=== PATIENT | male | born 1960 | race Caucasian/White ===

== ENCOUNTER 2023-07-04 04:32 | Inpatient (IN) | payer OTHER ==
[2023-07-04 05:07] LABS: #Monocytes 0.7 thou/uL (0.11-0.59); #Neutrophils 13.6 thou/uL (1.40-6.50); %Basophils 0.2 % (0.0-1.0); %Lymphocytes 9.4 % (21.0-51.0); %Monocytes 4.6 % (0.0-10.0); %Neutrophils 85.3 % (42.0-75.0); Hematocrit 40.9 % (42.0-52.0); Hemoglobin 14.1 g/dL (14.0-18.0); Mean Corpuscular HGB CONC 34.5 g/dL (32.0-36.0); Mean Corpuscular Hemoglobin 30.1 pg (27.0-31.0); Mean Corpuscular Volume 87.2 fl (78.0-98.0); Platelet Count 194 10x3/uL (130-400); RBC Distribution Width 13.3 % (11.5-14.5); Red Blood Cell (RBC) Count 4.69 mill/uL (4.70-6.10); White Blood Cell (WBC) Count 15.9 10x3/uL (4.8-10.8)
[2023-07-04] MEDS ORDERED: Cefepime 2 GM VIAL ONE (05:10)
[2023-07-04] MEDS ORDERED: Acetaminophen 500 MG TAB ONE (05:10)
[2023-07-04 05:34] LABS: ALT (SGPT) 18 U/L (8-55); AST (SGOT) 50 U/L (5-34); Albumin 4.6 g/dL (3.4-4.8); Alkaline Phosphatase 60 U/L (40-110); Anion Gap 15 mmol/L (10-20); BUN (Urea Nitrogen) 23 mg/dL (8.4-25.7); Bilirubin, Total 3.2 mg/dL (0.2-1.2); Calc. Creatinine Clearance 0 mL/min (70-130); Calcium 8.8 mg/dL (7.8-10.44); Carbon Dioxide 26 mmol/L (23-31); Chloride 96 mmol/L (98-107); Estimated GFR 65; Globulin 2.3 g/dL (2.4-3.5); Glucose 124 mg/dL (80-115); Potassium 3.3 mmol/L (3.5-5.1); Protein, Total 6.9 g/dL (5.8-8.1); Sodium 134 mmol/L (136-145)
[2023-07-04 05:38] LABS: Troponin I 0.021 ng/mL (< 0.028)
[2023-07-04] MEDS ORDERED: Vancomycin (BATCH) 2 GM in Premix 1 BAG IVPB SCH (07:00)
[2023-07-04] MEDS ORDERED: HYDROcodone/Acetaminophen 5/325 mg Tablet PO PRN (08:14)
[2023-07-04] MEDS ORDERED: Ondansetron PF 4 MG/2 ML Vial IVP PRN (08:14)
[2023-07-04] MEDS ORDERED: Bisacodyl 5 MG TAB PO PRN (08:14)
[2023-07-04] MEDS ORDERED: Senokot S 8.6-50 MG TAB PO PRN (08:14)
[2023-07-04] MEDS ORDERED: Calcium Carbonate 500 MG ChewTAB PO PRN (08:14)
[2023-07-04] MEDS ORDERED: Electrolyte Replacement Protocol 1 EACH FS SCH (08:30)
[2023-07-04] MEDS ORDERED: Potassium Chloride 20 MEQ TAB PO SCH (08:30)
[2023-07-04 08:52] LABS: Lactic Acid 1.1 mmol/L (0.5-2.2)
[2023-07-04] MEDS ORDERED: Cefepime 1 GM in Sodium Chloride 0.9% 100 ML IVPB SCH (09:00)
[2023-07-04] MEDS ORDERED: Vancomycin 1 GM in Premix 1 BAG IVPB SCH (09:00)
[2023-07-04 09:40] VITALS: BMI 35.2
[2023-07-04] MEDS: Lisinopril 20 MG TAB PO SCH (09:48)
[2023-07-04] MEDS: Amlodipine 5 MG TAB PO SCH (09:49)
[2023-07-04] MEDS ORDERED: FLU VACC QS2023(65UP)/MF59C/PF 60 MCG/0.5 ML SYRINGE IM ONE (14:00)
[2023-07-04] MEDS: Vancomycin (BATCH) 1.25 GM in Premix 1 BAG IVPB SCH (18:23)
[2023-07-04] MEDS: Acetaminophen 325 MG TAB PO PRN (20:39)
[2023-07-04] MEDS ORDERED: Vancomycin (BATCH) 1.75 GM in Premix 1 BAG IVPB SCH (21:00)
[2023-07-04] MEDS: Cefepime 2 GM in Sodium Chloride 0.9% 100 ML IVPB SCH (21:37)
[2023-07-05 05:17] LABS: #Monocytes 0.5 thou/uL (0.11-0.59); #Neutrophils 9.1 thou/uL (1.40-6.50); %Basophils 0.2 % (0.0-1.0); %Eosinophils 0.3 % (0.0-10.0); %Lymphocytes 11.4 % (21.0-51.0); %Monocytes 4.7 % (0.0-10.0); %Neutrophils 82.7 % (42.0-75.0); Hematocrit 33.6 % (42.0-52.0); Hemoglobin 11.5 g/dL (14.0-18.0); Mean Corpuscular HGB CONC 34.2 g/dL (32.0-36.0); Mean Corpuscular Hemoglobin 30.3 pg (27.0-31.0); Mean Corpuscular Volume 88.7 fl (78.0-98.0); Mean Platelet Volume 10.3 fL (7.4-10.4); Platelet Count 162 10x3/uL (130-400); RBC Distribution Width 13.5 % (11.5-14.5); Red Blood Cell (RBC) Count 3.79 mill/uL (4.70-6.10)
[2023-07-05 05:27] LABS: Hemoglobin A1c 5.2 % (4.0-6.0)
[2023-07-05] MEDS: Vancomycin (BATCH) 1.25 GM in Premix 1 BAG IVPB SCH (05:49)
[2023-07-05 05:52] LABS: Anion Gap 12 mmol/L (10-20); BUN (Urea Nitrogen) 18 mg/dL (8.4-25.7); Calc. Creatinine Clearance 140 mL/min (70-130); Calcium 8.7 mg/dL (7.8-10.44); Carbon Dioxide 25 mmol/L (23-31); Cardiac Risk 5.2 (Less than 4.5); Chloride 100 mmol/L (98-107); Cholesterol 140 mg/dl (< 200 Desired); Estimated GFR 95; Glucose 121 mg/dL (80-115); HDL Cholesterol 27 mg/dL (>60 Neg Risk); LDL Cholesterol, Calculated 86 mg/dL; Magnesium 2.2 mg/dL (1.6-2.6); Potassium 3.2 mmol/L (3.5-5.1); Sodium 134 mmol/L (136-145); Triglycerides 134 mg/dL (Less than 150)
[2023-07-05] MEDS ORDERED: Potassium Chloride 20 MEQ TAB PO SCH (08:00)
[2023-07-05] MEDS: Cefepime 2 GM in Sodium Chloride 0.9% 100 ML IVPB SCH ×2 (08:24→19:57)
[2023-07-05] MEDS: Amlodipine 5 MG TAB PO SCH (08:24)
[2023-07-05] MEDS: Lisinopril 20 MG TAB PO SCH (08:24)
[2023-07-05 17:16] LABS: Vancomycin, Trough 9.2 ug/mL
[2023-07-05] MEDS: Acetaminophen 325 MG TAB PO PRN (17:35)
[2023-07-05] MEDS: Vancomycin (BATCH) 1.5 GM in Premix 1 BAG IVPB SCH (17:50)
[2023-07-06] MEDS: Vancomycin (BATCH) 1.5 GM in Premix 1 BAG IVPB SCH ×2 (05:26→17:33)
[2023-07-06] MEDS: Cefepime 2 GM in Sodium Chloride 0.9% 100 ML IVPB SCH ×2 (09:03→20:54)
[2023-07-06] MEDS: Amlodipine 5 MG TAB PO SCH (09:03)
[2023-07-06] MEDS: Lisinopril 20 MG TAB PO SCH (09:03)
[2023-07-07 05:50] LABS: Vancomycin, Trough 10.3 ug/mL
[2023-07-07] MEDS: Vancomycin (BATCH) 1.5 GM in Premix 1 BAG IVPB SCH ×2 (06:26→17:39)
[2023-07-07 08:24] LABS: Anion Gap 13 mmol/L (10-20); BUN (Urea Nitrogen) 16 mg/dL (8.4-25.7); Calc. Creatinine Clearance 150 mL/min (70-130); Calcium 8.3 mg/dL (7.8-10.44); Carbon Dioxide 21 mmol/L (23-31); Chloride 106 mmol/L (98-107); Estimated GFR 97; Glucose 105 mg/dL (80-115); Potassium 3.3 mmol/L (3.5-5.1); Sodium 137 mmol/L (136-145)
[2023-07-07 09:12] LABS: #Eosinphils 0.3 thou/uL (0.0-0.7); #Monocytes 0.8 thou/uL (0.11-0.59); #Neutrophils 7.5 thou/uL (1.40-6.50); %Basophils 0.3 % (0.0-1.0); %Eosinophils 3.1 % (0.0-10.0); %Lymphocytes 14.9 % (21.0-51.0); %Neutrophils 72.9 % (42.0-75.0); Hematocrit 32.4 % (42.0-52.0); Hemoglobin 11.1 g/dL (14.0-18.0); Mean Corpuscular HGB CONC 34.3 g/dL (32.0-36.0); Mean Corpuscular Hemoglobin 30.1 pg (27.0-31.0); Mean Corpuscular Volume 87.8 fl (78.0-98.0); Mean Platelet Volume 10.4 fL (7.4-10.4); Platelet Count 196 10x3/uL (130-400); RBC Distribution Width 13.4 % (11.5-14.5); Red Blood Cell (RBC) Count 3.69 mill/uL (4.70-6.10); White Blood Cell (WBC) Count 10.2 10x3/uL (4.8-10.8)
[2023-07-07] MEDS ORDERED: Potassium Chloride 20 MEQ TAB PO SCH (09:15)
[2023-07-07] MEDS: Cefepime 2 GM in Sodium Chloride 0.9% 100 ML IVPB SCH ×2 (10:04→20:36)
[2023-07-07] MEDS: Amlodipine 5 MG TAB PO SCH (10:04)
[2023-07-07] MEDS: Lisinopril 20 MG TAB PO SCH (10:05)
[2023-07-07] MEDS: Clindamycin/D5W 900 MG in Premix 1 BAG IVPB SCH ×2 (14:23→21:34)
[2023-07-08] MEDS: Clindamycin/D5W 900 MG in Premix 1 BAG IVPB SCH (05:49)
[2023-07-08] MEDS: Vancomycin (BATCH) 1.5 GM in Premix 1 BAG IVPB SCH (05:50)
[2023-07-08] MEDS: Cefepime 2 GM in Sodium Chloride 0.9% 100 ML IVPB SCH (08:30)
[2023-07-08] MEDS: Lisinopril 20 MG TAB PO SCH (09:25)
[2023-07-08] MEDS: Amlodipine 5 MG TAB PO SCH (09:25)
[2023-07-08] MEDS: CEFAZOLIN 2 GM in Sodium Chloride 0.9% 100 ML IVPB SCH ×2 (14:33→21:00)
[2023-07-09] MEDS: CEFAZOLIN 2 GM in Sodium Chloride 0.9% 100 ML IVPB SCH ×3 (06:26→21:55)
[2023-07-09] MEDS: Lisinopril 20 MG TAB PO SCH (08:10)
[2023-07-09] MEDS: Amlodipine 5 MG TAB PO SCH (08:10)
[2023-07-09 09:04] LABS: #Eosinphils 0.3 thou/uL (0.0-0.7); #Monocytes 0.8 thou/uL (0.11-0.59); #Neutrophils 7.4 thou/uL (1.40-6.50); %Basophils 0.3 % (0.0-1.0); %Eosinophils 2.6 % (0.0-10.0); %Monocytes 7.8 % (0.0-10.0); %Neutrophils 71.5 % (42.0-75.0); Hematocrit 31.1 % (42.0-52.0); Hemoglobin 10.5 g/dL (14.0-18.0); Mean Corpuscular HGB CONC 33.8 g/dL (32.0-36.0); Mean Corpuscular Hemoglobin 30.3 pg (27.0-31.0); Mean Corpuscular Volume 89.6 fl (78.0-98.0); Mean Platelet Volume 10.5 fL (7.4-10.4); Platelet Count 279 10x3/uL (130-400); RBC Distribution Width 13.3 % (11.5-14.5); Red Blood Cell (RBC) Count 3.47 mill/uL (4.70-6.10); White Blood Cell (WBC) Count 10.3 10x3/uL (4.8-10.8)
[2023-07-09 09:24] LABS: Anion Gap 11 mmol/L (10-20); BUN (Urea Nitrogen) 15 mg/dL (8.4-25.7); Calc. Creatinine Clearance 152 mL/min (70-130); Calcium 8.4 mg/dL (7.8-10.44); Carbon Dioxide 27 mmol/L (23-31); Chloride 106 mmol/L (98-107); Estimated GFR 98; Glucose 117 mg/dL (80-115); Potassium 3.4 mmol/L (3.5-5.1); Sodium 141 mmol/L (136-145)
[2023-07-09] MEDS ORDERED: Potassium Chloride 20 MEQ TAB PO SCH ×2 (11:00→13:30)
[2023-07-10] MEDS: CEFAZOLIN 2 GM in Sodium Chloride 0.9% 100 ML IVPB SCH ×3 (05:34→21:01)
[2023-07-10] MEDS ORDERED: Potassium Chloride 20 MEQ TAB PO SCH (09:00)
[2023-07-10] MEDS: Amlodipine 5 MG TAB PO SCH (09:45)
[2023-07-10] MEDS: Lisinopril 20 MG TAB PO SCH (09:45)
[2023-07-10] MEDS ORDERED: Triamcinolone 0.025 % Cream 15GM TUBE TOP PRN (13:38)
[2023-07-10] MEDS: Triamcinolone 0.1% Cream 15 GM TUBE TOP SCH (21:05)
[2023-07-11] MEDS: CEFAZOLIN 2 GM in Sodium Chloride 0.9% 100 ML IVPB SCH ×3 (05:49→22:00)
[2023-07-11] MEDS: Lisinopril 20 MG TAB PO SCH (08:13)
[2023-07-11] MEDS: Amlodipine 5 MG TAB PO SCH (08:13)
[2023-07-11] MEDS: Metamucil PACK PO SCH (08:13)
[2023-07-11] MEDS: Triamcinolone 0.1% Cream 15 GM TUBE TOP SCH ×2 (08:20→20:06)
[2023-07-12] MEDS: CEFAZOLIN 2 GM in Sodium Chloride 0.9% 100 ML IVPB SCH ×3 (05:56→21:07)
[2023-07-12] MEDS: Amlodipine 5 MG TAB PO SCH (08:30)
[2023-07-12] MEDS: Lisinopril 20 MG TAB PO SCH (08:31)
[2023-07-12] MEDS: Metamucil PACK PO SCH (08:33)
[2023-07-12] MEDS: Triamcinolone 0.1% Cream 15 GM TUBE TOP SCH ×2 (08:39→21:07)
[2023-07-13] MEDS: CEFAZOLIN 2 GM in Sodium Chloride 0.9% 100 ML IVPB SCH ×3 (06:08→20:51)
[2023-07-13 06:31] LABS: Hemoglobin 10.6 g/dL (14.0-18.0); Mean Corpuscular HGB CONC 33.1 g/dL (32.0-36.0); Mean Corpuscular Hemoglobin 29.4 pg (27.0-31.0); Mean Corpuscular Volume 88.9 fl (78.0-98.0); Mean Platelet Volume 10.4 fL (7.4-10.4); Platelet Count 393 10x3/uL (130-400); White Blood Cell (WBC) Count 10.6 10x3/uL (4.8-10.8)
[2023-07-13 07:34] LABS: Anion Gap 13 mmol/L (10-20); BUN (Urea Nitrogen) 12 mg/dL (8.4-25.7); Calc. Creatinine Clearance 173 mL/min (70-130); Calcium 8.7 mg/dL (7.8-10.44); Carbon Dioxide 26 mmol/L (23-31); Chloride 104 mmol/L (98-107); Estimated GFR 102; Glucose 101 mg/dL (80-115); Potassium 4.3 mmol/L (3.5-5.1); Sodium 139 mmol/L (136-145)
[2023-07-13] MEDS: Metamucil PACK PO SCH (08:19)
[2023-07-13] MEDS: Amlodipine 5 MG TAB PO SCH (08:19)
[2023-07-13] MEDS: Lisinopril 20 MG TAB PO SCH (08:23)
[2023-07-13] MEDS: Triamcinolone 0.1% Cream 15 GM TUBE TOP SCH ×2 (11:07→20:49)
[2023-07-14] MEDS: CEFAZOLIN 2 GM in Sodium Chloride 0.9% 100 ML IVPB SCH ×3 (06:10→21:04)
[2023-07-14] MEDS: Amlodipine 5 MG TAB PO SCH (09:31)
[2023-07-14] MEDS: Lisinopril 20 MG TAB PO SCH (09:31)
[2023-07-14] MEDS: Metamucil PACK PO SCH ×2 (09:32→21:04)
[2023-07-14] MEDS: Triamcinolone 0.1% Cream 15 GM TUBE TOP SCH ×2 (09:32→21:03)
[2023-07-15] MEDS: CEFAZOLIN 2 GM in Sodium Chloride 0.9% 100 ML IVPB SCH ×2 (05:58→16:05)
[2023-07-15] MEDS: Amlodipine 5 MG TAB PO SCH ×2 (09:04→09:06)
[2023-07-15] MEDS: Metamucil PACK PO SCH (09:07)
[2023-07-15] MEDS: Lisinopril 20 MG TAB PO SCH (09:07)
[2023-07-15] MEDS: Triamcinolone 0.1% Cream 15 GM TUBE TOP SCH (09:07)
[2023-07-15 17:56] VITALS: BP 134/74; TEMP 97.7
== END 2023-07-15 17:39 | disposition home or self-care (01) | DRG 872 ==
LOC: ERS 04:32 → T4-A 07:31
PROVIDERS: ADMIT Family Medicine; ATTEND Internal Medicine
DX: A41.9 Sepsis, unspecified organism (principal); L03.116 Cellulitis of left lower limb; I10 Essential (primary) hypertension; L40.9 Psoriasis, unspecified; E66.01 Morbid (severe) obesity due to excess calories; E87.6 Hypokalemia; Z68.35 Body mass index [BMI] 35.0-35.9, adult; Z79.899 Other long term (current) drug therapy
CPT/HCPCS: 36415; 36416; 71045; 80048; 80053; 80061; 80202; 83036; 83605; 83735; 84443; 84484; 85025; 85027; 86140; 87040; 93005; 96365; 96367; 97139; J0692; J1650; J3370; J3490